=== PATIENT | female | born 1995 | race Caucasian/White ===

== ENCOUNTER → 2022-09-19 14:22 | Outpatient (CLI) | payer BC, OTHER, SELFPAY ==
[2022-09-19 19:06] LABS: Urine N gonorrhoeae NOT DETECTED
[2022-09-19 19:09] LABS: Urine Chlamydia NOT DETECTED
== END ==
PROVIDERS: PCP Physician Assistant; Visit Provider Obstetrics & Gynecology
DX: Z34.81 Encounter for supervision of other normal pregnancy, first trimester (principal); Z3A.13 13 weeks gestation of pregnancy
CPT/HCPCS: 87491; 87591

== ENCOUNTER → 2022-09-19 15:11 | Outpatient (CLI) | payer OTHER, SELFPAY ==
[2022-09-19 15:47] LABS: Specimen Label NATERA
[2022-09-19 16:44] LABS: Add Manual Diff / Slide Review NO; Basophils Absolute Auto 0 /uL (0-100); Basophils Percent Auto 0.4 % (0-2); Eosinophils Absolute Auto 0 /uL (0-450); Eosinophils Percent Auto 0.4 % (2-4); Hematocrit 39.1 % (36-46); Hemoglobin 13.1 g/dL (12.0-16.0); Lymphocytes Absolute Auto 1500 /uL (1100-4500); Lymphocytes Percent Auto 16.9 % (25-40); Mean Corpuscular HGB Conc 33.5 % (30-36); Mean Corpuscular Hemoglobin 28.1 PG (26-34); Mean Corpuscular Volume 83.9 fL (80-100); Monocytes Absolute Auto 400 /uL (0-900); Monocytes Percent Auto 4.8 % (3-14); Neutrophils Absolute Auto 6900 /uL (1500-7000); Neutrophils Percent Auto 77.5 % (50-75); Platelet Count 211 X10^3/uL (150-400); Red Blood Cell Count 4.66 X10^6/uL (4.0-5.2); Red Cell Distribution Width 12.8 % (11.6-14.8)
[2022-09-20 17:33] LABS: Hepatitis B Surface Antigen NEGATIVE s/c (NEGATIVE); Rubella Antibody IgG 3.8 IU/mL (>15)
[2022-09-20 17:42] LABS: HIV 1 & 2 Ab/Ag 4th Gen Combo NEGATIVE (NEGATIVE); Hep C Virus Ab w/Reflex Quant NEGATIVE s/c (NEGATIVE)
[2022-09-21 10:03] LABS: Varicella IgG Antibody 2469 index (Immune >165)
[2022-09-21 11:09] LABS: RPR Screen Non Reactive (Non Reactive)
== END ==
PROVIDERS: PCP Physician Assistant; Referring Provider Obstetrics & Gynecology; Visit Provider Obstetrics & Gynecology
DX: Z34.01 Encounter for supervision of normal first pregnancy, first trimester (principal); Z3A.13 13 weeks gestation of pregnancy
CPT/HCPCS: 36415; 80055; 86787; 86803; 86850; 86900; 86901; 87389; 87491; 87591

== ENCOUNTER → 2022-10-17 15:32 | Outpatient (CLI) | payer OTHER, SELFPAY ==
[2022-10-17 21:28] LABS: Appearance Urine UA CLEAR; Bilirubin Urine UA NEGATIVE (NEGATIVE); Color Urine UA YELLOW; Glucose Urine UA NEGATIVE (Negative); Ketones Urine UA NEGATIVE (NEGATIVE); Leukocyte Esterase Urine UA 1+ (NEGATIVE); Nitrite Urine UA NEGATIVE (Negative); Occult Blood Urine UA NEGATIVE (Negative); Protein Urine UA NEGATIVE (Negative); Specific Gravity Urine UA <=1.005 (1.000-1.035); Urobilinogen Urine UA 0.2 E.U./dL (0.2)
[2022-10-17 21:29] LABS: pH Urine UA 6.5 (4.5-8.0)
[2022-10-17 21:35] LABS: Bacteria Urine Few (2-10); Culture Indicated Urine Cult Not Indicated; RBC Urine None Seen (0-5/HPF); Squamous Epithelial Cell Urine 0-1 /HPF (0-5/HPF); WBC Urine 0-1/HPF (0-5/HPF)
== END ==
PROVIDERS: Visit Provider Obstetrics & Gynecology
DX: Z34.01 Encounter for supervision of normal first pregnancy, first trimester (principal)
CPT/HCPCS: 81003; 81015; 87086

== ENCOUNTER → 2022-10-17 15:51 | Outpatient (CLI) | payer OTHER, SELFPAY ==
[2022-10-19 22:07] LABS: AFP Value 34.8 ng/mL (.); Gest Age on Col Date 17.1 weeks (.); Insulin Dep Diabetes No (.); OSBR Risk 1IN 10000 (.); Results Report (.); Test Results *Screen Negative* (.)
== END ==
PROVIDERS: Referring Provider Obstetrics & Gynecology; Visit Provider Obstetrics & Gynecology
DX: Z34.82 Encounter for supervision of other normal pregnancy, second trimester (principal); Z3A.17 17 weeks gestation of pregnancy
CPT/HCPCS: 36415; 81003; 81015; 82105; 87086

== ENCOUNTER → 2022-11-08 14:50 | Outpatient (CLI) | payer OTHER, SELFPAY ==
--- NOTE | 2022-11-08 14:51 | DI.US.S_ITS ---
PROCEDURE: US OB >= 14 WEEKS FETUS INDICATIONS: 20 Week Anatomy Scan OUTSIDE/PRIOR DATING DATA: Last menstrual period (LMP): 06/19/2022. LMP-based estimated date of delivery (SYMONE): 03/26/2023. First dating scan (date and location): 08/16/2022, [facility] Estimated date of delivery (SYMONE) from first dating scan: 03/26/2023. The calculations are made using the ultrasound SYMONE of 03/26/2023. TECHNIQUE: Real-time scanning was performed of the fetus, with image documentation and biometric measurements. COMPARISON: [facility], [place], US OB FIRST TRIMESTER, 08/16/2022, 20:21. FINDINGS: General: A single live intrauterine gestation is present. Presentation: Cephalic. Placenta: Placental position is anterior , without previa. Amniotic fluid index: 14.9 cm, normal range is 5-24 cm. Single deepest vertical pocket is 4.2 cm. heart rate: 145 beats per minute. Maternal cervical canal: 4.7 cm long. Normal lower limit is 2.5 cm. biometrics: Biparietal diameter: 5 cm equals 21 weeks 0 days Head circumference: 18.2 cm equals 20 weeks 4 days Abdominal circumference: 15.6 cm equals 20 weeks 5 days Femur length: 3.4 cm equals 20 weeks 4 days Clinically estimated gestational age: 20 weeks 2 days Composite gestational age from present scan: 20 weeks 5 days Estimated weight and percentile: Dinner 69 g, 67th percentile Anatomic survey: Neuro: Ventricles are non-dilated at less than 10 mm. Cisterna magna is normal at 3-11 mm. Cerebellum is normal in size and morphology. Face: Nose and lips, facial profile are normal. Spine: No evidence for spina bifida. Heart: 4-chambered heart is present, with normal ventricular outflow tracts. Diaphragm: Diaphragm is intact. Stomach: Left-sided stomach is present. Kidneys: No hydronephrosis. Normal is less than 5 mm in 2nd trimester, less than 7 mm in 3rd trimester. Cord: 3-vessel cord has orthotopic insertion. Bladder: Normal in size. Extremities: All 4 extremities identified. IMPRESSION: A single live intrauterine is seen. No anatomic abnormalities are identified. Normal interval growth when compared to the prior ultrasound examination. We strive to produce accurate, complete, and clear reports of imaging services. To assist us in improving patient care, this report was composed using standard report templates and voice recognition software. Therefore, it may contain abnormal punctuation, insertions and/or omissions. Occasional wrong-word or sound-alike substitutions may occur. Though we review the report and make efforts to correct it, we do recommend that the report be read carefully in proper context to recognize any text inaccuracies. Dictated by: Moo Randolph M.D. on 11/10/2022 at 8:05 Approved by: Moo Randolph M.D. on 11/10/2022 at 8:11
== END ==
PROVIDERS: Referring Provider Obstetrics & Gynecology; Visit Provider Obstetrics & Gynecology
DX: Z34.82 Encounter for supervision of other normal pregnancy, second trimester (principal); Z3A.20 20 weeks gestation of pregnancy
CPT/HCPCS: 76811

== ENCOUNTER → 2022-12-19 15:17 | Outpatient (CLI) | payer OTHER, SELFPAY ==
[2022-12-19 16:30] LABS: Hematocrit 34.1 % (36-46); Hemoglobin 11.3 g/dL (12.0-16.0)
[2022-12-19 16:43] LABS: GTT (PREG) 1 Hour PP 50gm Dose 101 mg/dL (76-139)
== END ==
PROVIDERS: Referring Provider Obstetrics & Gynecology; Visit Provider Obstetrics & Gynecology
DX: O26.899 Other specified pregnancy related conditions, unspecified trimester (principal); Z3A.26 26 weeks gestation of pregnancy; Z67.91 Unspecified blood type, Rh negative
CPT/HCPCS: 36415; 82950; 85014; 85018; 86850

== ENCOUNTER → 2023-03-06 14:47 | Outpatient (CLI) | payer OTHER, SELFPAY ==
[2023-03-07 11:37] LABS: Strep Grp B PCR NEG for Grp B Strep
== END ==
PROVIDERS: Visit Provider Obstetrics & Gynecology
DX: Z34.83 Encounter for supervision of other normal pregnancy, third trimester (principal); Z3A.37 37 weeks gestation of pregnancy
CPT/HCPCS: 87653

== ENCOUNTER 2023-03-22 03:45 | Inpatient (IN) | payer OTHER, SELFPAY ==
[2023-03-22 04:40] VITALS: BP 139/88
[2023-03-22 06:51] LABS: Add Manual Diff / Slide Review NO; Basophils Absolute Auto 0 /uL (0-100); Basophils Percent Auto 0.3 % (0-2); Eosinophils Absolute Auto 0 /uL (0-450); Eosinophils Percent Auto 0.4 % (2-4); Hematocrit 34.6 % (36-46); Hemoglobin 11.7 g/dL (12.0-16.0); Lymphocytes Absolute Auto 1500 /uL (1100-4500); Lymphocytes Percent Auto 17.6 % (25-40); Mean Corpuscular HGB Conc 33.8 % (30-36); Mean Corpuscular Hemoglobin 28.3 PG (26-34); Mean Corpuscular Volume 83.8 fL (80-100); Monocytes Absolute Auto 500 /uL (0-900); Neutrophils Absolute Auto 6300 /uL (1500-7000); Neutrophils Percent Auto 75.7 % (50-75); Platelet Count 160 X10^3/uL (150-400); Red Blood Cell Count 4.13 X10^6/uL (4.0-5.2); Red Cell Distribution Width 13.4 % (11.6-14.8); White Blood Cell Count 8.3 X10^3/uL (4.5-11.0)
[2023-03-22] MEDS: LACTATED RINGERS 1,000 ML 100 ML IV ×2 (09:45→10:50)
[2023-03-22] MEDS: FENT 2MCG/ML BUPIV 0.125% EPI 200 MCG/100 ML PLAST..BAG 6 MCG EPIDURAL (10:51)
--- NOTE | 2023-03-22 11:48 | P.HPOB_ITS ---
OB HPI Date/Time Date of admission: 03/22/23 Date Patient Seen: 03/22/23 Time Patient Seen: 09:00 History of Present Condition Chief complaint: OB SYMONE Calculator Estimated Delivery Date Method Current WG Current Estimate 03/26/23 LMP (Certain) 39w 3d Other Estimates 03/24/23 Ultrasound #1 39w 5d Estimated Gestational Age (weeks): 39+3 : 2 Para: 0 care: good care, initiated at week # (13), number of visits (10) and pounds weight gain (46) Dating criteria OB: LMP confirmed by 1st trimester US Ultrasounds: normal 1st trimester US and normal mid trimester US Obstetrical complications: none Medical complications OB: none Preadmission Labs Last OB Lab Results: Blood Type O Negative 03/22/23 06:10 Antibody Screen Positive 03/22/23 06:10 Hematocrit 34.6 % (36-46) L 03/22/23 06:10 Hemoglobin 11.7 g/dL (12.0-16.0) L 03/22/23 06:10 Hepatitis B Surface Antigen Negative s/c (NEGATIVE) 09/19/22 15 :14 Hepatitis C Antibody Negative s/c (NEGATIVE) 09/19/22 15:14 Rubella Antibody 3.8 IU/mL (>15) L 09/19/22 15:14 Varicella-Zoster IgG Antibody 2469 index (Immune >165) 09/19/22 15:14 Glucose 1 Hour 101 mg/dL (76-139) 12/19/22 15:20 Group B Streptococcus (PCR) Neg for grp b strep 03/06/23 14:47 -: Chlamydia screen: negative, Gonorrhea screen: negative and Urine: negative Genetic Screens: Cell-free DNA: Normal and Alpha-fetoprotein: Normal External Labs -: Urine: negative Prior (ies) Past Pregnancies Del. Date GA/Weeks Labor Lgth Wt Sex Route Outcome Anesthesia Place Delv Breastfeed Preg Comp Name 06/19/22 5 spontaneous Delivery Date: 06/19/22 Last Updated by: Radha Anthony RN very early SAB, no complications Evaluation Evaluation Baseline heart rate: 140 Variability: Moderate (11-25) monitor accelerations: Absent Monitor Decelerations: Early Contraction Frequency (minutes): 3 Uterine Contraction Intensity: Strong/Firm Status: Category l Dilation (cm): 6 Effacement (%): 100 station: 0 Position of cervix: anterior Consistency: soft PFSH Medical History (Updated 12/28/22 @ 21:34 by Kezia Franco MD) Acne (~2011) Lactose intolerance Surgical History (Updated 09/21/22 @ 20:42 by Nay Tripp) Anesthesia [place] teeth extracted (~2012) Family History (Updated 09/21/22 @ 20:42 by Nay Tripp) Grandmother Lung cancer Grandfather No problems noted. 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) occupational status: employed (works from home) current occupational exposures/hazards: No special erwin needs: No travel history: recent (domestic only) seatbelt use: always helmet use: Yes water heater temp set < 120 deg: Yes working smoke detector in home: Yes fire extinguisher in home: Yes carbon monox detector in home: Yes firearms in home: Yes firearms unloaded and locked: Yes do you feel safe at home: Yes Smoking Status: Never smoker second hand exposure: No alcohol intake: former (rarely when not ) substance use type: does not use during the past year weight has: remained stable well-balanced diet: daily or most days daily servings fruits/ve-4 caffeine: Yes (aware of 200mg limit) Type(s) of exercise: walking and yoga frequency: daily duration: 30-45 minutes/day Meds Home Medications and Allergies Home Medications Medication Instructions Recorded Confirmed Type prenat.vits,silvia,ork-[id number] 1 tab PO DAILY 08/27/22 03/22/23 History Allergies Allergy/AdvReac Type Severity Reaction Status Date / Time No Known Drug Allergies Allergy Unverified 03/20/23 13:43 OB Exam Narrative Exam Narrative: Generally: Patient getting uncomfortable with contractions Lungs: Clear to auscultation bilaterally Cardiovascular: Regular rate and rhythm Fundal height: 40 cm Estimated weight: 8 lb Extremities: Trace edema Objective Labs 03/22/23 06:10 Labs: Laboratory Results - last 24 hr 06/23/23 06/23/23 06:10 06:10 WBC 8.3 RBC 4.13 Hgb 11.7 L Hct 34.6 L MCV 83.8 MCH 28.3 MCHC 33.8 RDW 13.4 Plt Count 160 Neut % (Auto) 75.7 H Lymph % (Auto) 17.6 L [place] % (Auto) 6.0 Eos % (Auto) 0.4 L Baso % (Auto) 0.3 Neut # (Auto) 6300 Lymph # (Auto) 1500 [place] # (Auto) 500 Eos # (Auto) 0 Baso # (Auto) 0 Blood Type O Negative Antibody Screen Positive Antibody Identification Anti-D Assessment and Plan Assessment and Plan Assessment and Plan narrative: Assessment: 27-year-old 2 para 0 at 39-,3/7 weeks gestation status post spontaneous rupture of membranes with clear amniotic fluid Group B strep negative Active labor, requesting epidural Plan: Epidural Expected management to spontaneous vaginal delivery Time Spent with Patient Total time spent with greater than 50% in coordination of care (as documented) at patient's floor/unit and/or counseling patient:: 15-24 minutes
--- NOTE | 2023-03-22 14:55 | PM.OBPNLAB ---
Date/Time Date Patient Seen: 03/22/23 Time Patient Seen: 14:55 Pain Control Pain control: epidural Pelvic Exam Dilation (cm): 10 Effacement (%): 100 station: +1 Amniotic membrane status: Ruptured (clear) Contractions Contractions on admission: irregular Monitor mode: External Contraction frequency (min): 3 Contraction duration (min): 1 Contraction pattern: Regular Contraction intensity: Strong/Firm Status status: Category l Heart Rate Baseline: 140 Monitor Accelerations: Present Monitor Decelerations: Early and Variable Monitor Variability: Moderate Assessment and Plan Assessment: active labor Comments: Assessment: 27-year-old 2 para 0 at 39-,3/7 weeks gestation entering second stage of labor Plan: Begin pushing Expected management to spontaneous vaginal delivery
--- NOTE | 2023-03-22 17:59 | SUR.OPER ---
Lithotomy on padded OR bed, head on pillow, arms secured on padded arm boards at <90 degrees abduction. Legs secured in padded yellow fins stirrups.
--- NOTE | 2023-03-22 18:30 | PM.PREOP ---
Pre-operative Note Interval Note History & Physical reviewed/Exam performed by Physician: Yes Changes to H&P: No H&P completed within 30 days and has changed as indicated here:: 03/22/23
--- NOTE | 2023-03-22 18:30 | PM.OBPRVD ---
Labor & Delivery Delivery date: 03/22/23 Intrapartal Events: None Cervical ripening method: none Induction method: none Delivery monitor: external FHT and external uterine Route of delivery: Episiotomy description: None L&D Laceration Description: Vaginal - 2nd Degree and Labial (bilateral) Delivery repair: vicryl and chromic Quantitative Blood Loss: 2,037 Anesthesia Type: Epidural Complications: Complicated obstetrical laceration, taken to OR to repair Narrative: Patient complete and pushed for 1 hour and 30 minutes. At 2:33 p.m. a live female infant delivered spontaneously in the EDMUNDO presentation, over an intact perineum. There was a compound presentation with the right arm and hand. The remainder of the body delivered without difficulty and was placed on mom's abdomen. After the cord stopped pulsing, the cord was double clamped and cut. Pitocin was given in the IV fluids. Cord bloods were obtained. The placenta delivered intact with a three-vessel cord at 4:42 p.m.. An attempt was made to repair a complicated vaginal laceration where the vaginal mucosa pulled away from the perineal body. There was poor visualization. A decision was made to take the patient to the operating room for repair. Apgars 9 at 1 minute and 9 at 5 minutes. Weight 7 lb 6.6 oz. . Epidural analgesia. Baby is stable to recovery. Mom to operating room for obstetrical laceration repair. Baby 1: Infant gender: Female Presentation: vertex Position: Left Occiput Anterior Placenta delivery description: Spontaneous Cord Vessel Description: 3 Vessels and Clamped/Cut (after cord stopped pulsing) score (1 min): 9 score (5 min): 9 weight: 7 lb 6.6 oz Plan for aftercare: Routine care
--- NOTE | 2023-03-22 18:40 | PM.GYNOP.1 ---
Operative Date/Time/Diagnoses Date of procedure: 03/22/23 Time of procedure: 18:41 Pre-op diagnosis: Complicated obstetrical laceration Post-op diagnosis: same Procedure & Clinicians Procedure: Procedures Operation Date: 03/22/23 18:00 Actual Procedure Side Surgeon Complicated obstetrical laceration repair Kezia Franco MD Indications: Complicated obstetrical laceration Surgeon: Kezia Franco Blood Bank Manager: Mendy Couch Anesthesia Type: Epidural Operative Notes Findings: Vaginal mucosa from the perineal body. Bilateral labial lacerations. Closure Type: primary Specimen(s): none Applied: catheter (Maldonado to continuous drainage) Estimated blood loss (mL): 50 Blood products transfused: none Procedure in detail: Informed consent was obtained. The patient was taken to the operating room where she was placed in the dorsal lithotomy position. A Maldonado catheter was placed under sterile conditions. Her vagina and perineum were prepped and draped in the usual sterile fashion. A lap sponge was placed deep into the vagina. All of the sutures that were placed over on labor and delivery were removed. There was found to be a significant tear from 3-9 o'clock where the vaginal mucosa from the perineal body. 2-0 Vicryl was used to re attach the mucosa to the perineal body including the underlying tissue to reinforce. The bilateral labial lacerations were hemostatic. There was a superficial tear right at the introitus which was repaired with a [id number] suture with 3-0 chromic. Hemostasis was achieved. The lap sponge was removed from the vagina. Sponge, lap, and instrument counts were correct x2. The patient tolerated the procedure well, and was taken to PACU in stable condition Complications: none Post-operative Condition: stable Disposition: PACU Plan for aftercare: To the Center after Recovery
[2023-03-22 20:36] LABS: Hematocrit 29.3 % (36-46); Hemoglobin 9.7 g/dL (12.0-16.0)
[2023-03-22] MEDS: IBUPROFEN 600 MG TABLET PO (21:13)
[2023-03-22] MEDS: DOCUSATE 100 MG CAPSULE PO (21:14)
[2023-03-22] MEDS: ACETAMINOPHEN 325 MG TABLET 650 MG PO (21:14)
[2023-03-23] MEDS: IBUPROFEN 600 MG TABLET PO ×3 (03:01→16:11)
[2023-03-23] MEDS: ACETAMINOPHEN 325 MG TABLET 650 MG PO ×3 (03:01→16:11)
[2023-03-23 07:54] LABS: Hematocrit 26.6 % (36-46); Hemoglobin 8.8 g/dL (12.0-16.0)
[2023-03-23] MEDS: PRENATAL VIT,CALC/IRON/FOLIC 1 TABLET 1 TAB PO (09:24)
[2023-03-23] MEDS: DOCUSATE 100 MG CAPSULE PO (09:24)
[2023-03-23] MEDS: DERMOPLAST SPRAY 20% 60 ML 1 SPRAY TOP (09:25)
--- NOTE | 2023-03-23 15:43 | PM.OBPNLAB ---
Date/Time Date Patient Seen: 03/23/23 Time Patient Seen: 15:44 Pain Control Pain control: epidural Pelvic Exam Effacement (%): 100 station: +1 Amniotic membrane status: Ruptured (clear) Contractions Monitor mode: External Contraction frequency (min): 3 Contraction duration (min): 1 Contraction pattern: Regular Contraction intensity: Strong/Firm Status status: Category l Heart Rate Baseline: 135 Monitor Accelerations: Present Monitor Decelerations: Absent Monitor Variability: Moderate Assessment and Plan Assessment: active labor Comments: Expectant management to
--- NOTE | 2023-03-23 15:47 | PM.OBDS.1 ---
Discharge Providers Provider Date of admission: 03/22/23 03:45 Discharge Date: 03/23/23 Primary care physician: Yves ELAM Provider Consults: 03/22/23 04:36 Consult to Anesthesiology Urgent Comment: Consulting Provider: Anesthesiologist Reason for consultation: Epidural 03/23/23 18:59 Consult to [facility] Director Routine Comment: Discharge provider: Kezia Franco MD Summary Hospital Course Date Patient Seen: 03/23/23 Time Patient Seen: 12:15 Diagnoses: 39-3/7 weeks gestation Spontaneous rupture of membranes Spontaneous vaginal delivery Complicated obstetrical laceration and repair Hospital Course: Patient is a 27-year-old 2 para 1 who presented on March 22, 2023 at 39-,3/7 weeks gestation in active labor with spontaneous rupture of membranes. She received an epidural for pain management. She had a spontaneous vaginal delivery. She had a complicated obstetrical laceration requiring repair in the operating room. She had an estimated blood loss of about a 1000 cc. She was asymptomatic. Her course was unremarkable. She is discharged home on day #1. She will follow-up at 6 weeks. Peripartum Data Delivery Method: Natural Vaginal Laceration Description: Vaginal - 2nd Degree and Labial (bilateral) Episiotomy description: None Procedures: Epidural analgesia Spontaneous vaginal delivery Repair of complicated obstetrical laceration complications: none 1: Gender: Female Disposition of : home Status at Discharge Cognitive/behavioral status at discharge: oriented Functional status at discharge: independent ambulation Overall status at discharge: patient is progressing back to baseline Time Spent with Patient Time attestation: Total time spent providing and/or coordinating discharge services: Time spent: Less than 30 minutes Objective Labs 03/23/23 07:20 Labs: Laboratory Results - last 24 hr 03/22/23 03/22/23 03/23/23 06:10 20:15 07:20 Hgb 9.7 L 8.8 L Hct 29.3 L 26.6 L Blood Type O Negative Antibody Screen Positive Antibody Identification Anti-D Crossmatch See Detail Exam Narrative Exam Narrative: Generally: Patient walking around in room, no acute distress Fundus: Firm at U -1 Perineum: Edematous Extremities: Trace edema, negative Homans Discharge Plan Discharge Plan Patient Disposition: Home Provider Discharge Comment: Call with fever, chills, or bleeding vaginally more than a pad in an hour Tylenol 650 mg every 6 hours as needed Ibuprofen 600 mg every 6 hours as needed Stool softeners as needed Discharge orders & Medications Prescriptions: Continued prenat.vits,silvia,[id number] Tablet 1 tab PO DAILY Follow up/Referrals: Kezia Franco MD [Physician] - (My office will call on Saturday to schedule 6 week visit) Diet/Activity/Treatments Diet: Regular Activity: Nothing in the vagina for 6 weeks Skin/Wound/Dressing Care Report to your healthcare provider any signs of infection, such as:: chills, fever, increased pain and unusual drainage Visit Report/Discharge Packet Instructions: DI for Labor and Delivery, Vaginal Stand Alone Forms: Patient Portal/API, Stroke Signs & Symptoms Discharge Data Primary Care Provider: Yves Miguel Attending Provider: Anton Kraft Admketurah Date/Time: 03/22/23 03:45
[2023-03-23] MEDS: MEASLES,MUMPS,RUBELLA VACC/PF 0.5 ML VIAL SUBCUT (16:12)
[2023-03-23] MEDS: RHO(D) IMMUNE GLOBULIN 1,500 UNIT SYRINGE 1500 UNIT IM (16:12)
== END 2023-03-23 18:45 | disposition home or self-care (01) | DRG 806 ==
PROVIDERS: Obstetrics & Gynecology; Admitting Provider Obstetrics & Gynecology; Referring Provider Obstetrics & Gynecology; Visit Provider Obstetrics & Gynecology
PROC: 10E0XZZ Delivery of Products of Conception, External Approach (ICD-10-PCS; CPT 59300; principal; 2023-03-22 18:00)
DX: O70.1 Second degree perineal laceration during delivery (principal); O36.0130 Maternal care for anti-D [Rh] antibodies, third trimester, not applicable or unspecified; Z37.0 Single live birth; Z3A.39 39 weeks gestation of pregnancy
CPT/HCPCS: 36415; 59025; 59050; 59400; 84112; 85014; 85018; 85025; 86850; 86870; 86900; 86901; G0378; G0379; J2704; J2790; J3010

== ENCOUNTER → 2024-11-24 10:21 | Outpatient (CLI) | payer OTHER, SELFPAY ==
[2024-11-24 11:33] LABS: Natera Collection Specimen Collected
== END ==
PROVIDERS: Referring Provider Obstetrics & Gynecology; Visit Provider Obstetrics & Gynecology
DX: Z11.51 Encounter for screening for human papillomavirus (HPV) (principal); Z12.4 Encounter for screening for malignant neoplasm of cervix; Z11.3 Encounter for screening for infections with a predominantly sexual mode of transmission
CPT/HCPCS: 36415

== ENCOUNTER → 2025-01-14 09:40 | Outpatient (CLI) | payer OTHER, SELFPAY ==
[2025-01-14 11:01] LABS: Add Manual Diff / Slide Review NO; Basophils Absolute Auto 0 /uL (0-100); Basophils Percent Auto 0.3 % (0-2); Eosinophils Absolute Auto 0 /uL (0-450); Eosinophils Percent Auto 0.5 % (2-4); Hematocrit 37.6 % (36-46); Hemoglobin 12.5 g/dL (12.0-16.0); Lymphocytes Absolute Auto 1200 /uL (1100-4500); Mean Corpuscular HGB Conc 33.1 % (30-36); Mean Corpuscular Hemoglobin 28.2 PG (26-34); Mean Corpuscular Volume 84.9 fL (80-100); Monocytes Absolute Auto 300 /uL (0-900); Monocytes Percent Auto 5.1 % (3-14); Neutrophils Absolute Auto 5200 /uL (1500-7000); Neutrophils Percent Auto 76.1 % (50-75); Platelet Count 200 X10^3/uL (150-400); Red Blood Cell Count 4.43 X10^6/uL (4.0-5.2); Red Cell Distribution Width 13.9 % (11.6-14.8); White Blood Cell Count 6.9 X10^3/uL (4.5-11.0)
[2025-01-14 11:52] LABS: Hepatitis B Surface Antigen NEGATIVE s/c (NEGATIVE)
[2025-01-14 12:03] LABS: HIV 1 & 2 Ab/Ag 4th Gen Combo NEGATIVE (NEGATIVE); Hep C Virus Ab w/Reflex Quant NEGATIVE s/c (NEGATIVE)
[2025-01-15 07:36] LABS: RPR Screen Non Reactive (Non Reactive)
[2025-01-15 09:36] LABS: Varicella IgG Antibody Reactive (Non Reactive)
[2025-01-16 18:36] LABS: AFP Value 36.8 ng/mL (.); Insulin Dep Diabetes No (.); OSBR Risk 1IN 10000 (.); Results Report (.); Test Results *Screen Negative* (.)
[2025-01-20 07:49] LABS: PDF SEE SCANNED REPORTS
== END ==
PROVIDERS: Specialist; Referring Provider Obstetrics & Gynecology; Visit Provider Obstetrics & Gynecology
DX: Z34.82 Encounter for supervision of other normal pregnancy, second trimester (principal)
CPT/HCPCS: 36415; 80055; 82105; 86787; 86803; 86850; 86900; 86901; 87389

== ENCOUNTER → 2025-02-15 08:56 | Outpatient (CLI) | payer OTHER, SELFPAY ==
--- NOTE | 2025-02-15 08:56 | DI.US.S_ITS ---
PROCEDURE: US OB >= 14 WEEKS FETUS INDICATIONS: 20 week anatomy scan OUTSIDE/PRIOR DATING DATA: Last menstrual period (LMP): 09/12/24. LMP-based estimated date of delivery (SYMONE): 06/19/25. First dating scan (date and location): 11/19/24. Estimated date of delivery (SYMONE) from first dating scan: 06/21/25. The calculations are made using the working SYMONE of 06/19/25. TECHNIQUE: Real-time scanning was performed of the fetus, with image documentation and biometric measurements. Endovaginal scanning: Not performed COMPARISON: [facility], , OB >= 14 WEEKS FETUS, 02/05/2023, 14:46. FINDINGS: General: A single living intrauterine gestation is present. Presentation: Variable. Placenta: Placental position is posterior , without previa. Amniotic fluid index: 17.3 cm, normal range is 5-24 cm. Single deepest vertical pocket is 5.7 cm. heart rate: 143 beats per minute. Maternal cervical canal: Closed and 4.4 cm long. Normal lower limit is 2.5 cm. biometrics: Biparietal diameter: 5.4 cm, 22 weeks four days Head circumference: 20.4 cm, 22 weeks four days Abdominal circumference: 19.0 cm, 23 weeks five days Femur length: 3.8 cm, 22 weeks one day Clinically estimated gestational age: 22 weeks two days Composite gestational age from present scan: 22 weeks five days Estimated weight and percentile: 548 g, 76th percentile Anatomic survey: Neuro: Ventricles are non-dilated at less than 10 mm. Cisterna magna is normal at 3-11 mm. Cerebellum is normal in size and morphology. Nuchal skin fold: Normal at less than 6 mm between 14-21 weeks gestational age. Face: Nose and lips, facial profile are normal. Spine: No evidence for spina bifida. Heart: 4-chambered heart is present, with normal ventricular outflow tracts. Diaphragm: Diaphragm is intact. Stomach: Left-sided stomach is present. Kidneys: No hydronephrosis. Normal is less than 5 mm in 2nd trimester, less than 7 mm in 3rd trimester. Cord: 3-vessel cord has orthotopic insertion. Bladder: Normal in size. Extremities: All 4 extremities identified. IMPRESSION: Single live intrauterine with estimated weight at the 76 percentile. Symmetric growth and normal anatomy. Cervix and normal amniotic fluid volume. Posterior placenta. We strive to produce accurate, complete, and clear reports of imaging services. To assist us in improving patient care, this report was composed using standard report templates and voice recognition software. Therefore, it may contain abnormal punctuation, insertions and/or omissions. Occasional wrong-word or sound-alike substitutions may occur. Though we review the report and make efforts to correct it, we do recommend that the report be read carefully in proper context to recognize any text inaccuracies. Dictated by: Jesica Tavera M.D. on 02/15/2025 at 18:42 Approved by: Jesica Tavera M.D. on 02/15/2025 at 18:46
== END ==
PROVIDERS: Referring Provider Specialist; Visit Provider Specialist
DX: Z34.92 Encounter for supervision of normal pregnancy, unspecified, second trimester (principal); Z3A.22 22 weeks gestation of pregnancy
CPT/HCPCS: 76811

== ENCOUNTER → 2025-03-04 09:16 | Outpatient (CLI) | payer OTHER, SELFPAY ==
[2025-03-04 10:50] LABS: Hematocrit 36.4 % (36-46)
[2025-03-04 11:25] LABS: GTT (PREG) 1 Hour PP 50gm Dose 87 mg/dL (76-139)
== END ==
LOC: LAB 09:17
PROVIDERS: Referring Provider Obstetrics & Gynecology; Visit Provider Obstetrics & Gynecology
DX: Z34.82 Encounter for supervision of other normal pregnancy, second trimester (principal); Z3A.26 26 weeks gestation of pregnancy
CPT/HCPCS: 36415; 82950; 85014; 85018; 86850